=== PATIENT | male | born 1965 | race Caucasian/White ===

== ENCOUNTER → 2020-05-16 07:37 | Outpatient (CLI) | payer OTHER, SELFPAY ==
[2020-05-16] MEDS: COVID-19 VACC, Ad26(JANSSEN)/PF 0.5 ML IM (08:00)
== END ==
PROVIDERS: Visit Provider Internal Medicine
DX: Z23 Encounter for immunization (principal)
CPT/HCPCS: 0011A; 0031A; 91301; 91303

== ENCOUNTER → 2021-01-10 17:22 | Outpatient (CLI) | payer OTHER, SELFPAY ==
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
== END ==
PROVIDERS: Referring Provider Nurse Practitioner Family; Visit Provider Nurse Practitioner Family
DX: S49.90XA Unspecified injury of shoulder and upper arm, unspecified arm, initial encounter (principal); V89.2XXA Person injured in unspecified motor-vehicle accident, traffic, initial encounter
CPT/HCPCS: 73030

== ENCOUNTER → 2024-01-25 07:29 | Outpatient (CLI) | payer OTHER, SELFPAY ==
[2024-01-25 08:16] LABS: Influenza A - CEPHEID Flu A NEGATIVE (NEGATIVE); Influenza B - CEPHEID Flu B NEGATIVE (NEGATIVE); Respiratory Syncytial Virus Negative (Negative)
[2024-01-25 08:17] LABS: COVID-19 CEPHEID 4-PLEX PCR Negative (Negative)
== END ==
PROVIDERS: Visit Provider Physician Assistant Medical
DX: R05.1 Acute cough (principal)
CPT/HCPCS: 0241U